=== PATIENT | male | born 1995 | race Caucasian/White ===

== ENCOUNTER → 2016-06-25 | Outpatient (CLI) | payer OTHER ==
[~2016-06-25] MED LIST: CETITAB27 PO; FLUT0.0529 NAE; KETO0.0216 OP; MONT1TAB3 PO; allergy shot SC
[2016-06-25 14:22] LABS: BASO % 0.4 %; BASO ABS # 0.02 K/uL (0-0.2); COMPLETE YES; EOS % 4.2 %; HEMATOCRIT 45.7 % (42-52); LYMPH % 35.4 %; LYMPH ABS # 1.95 K/uL (1.2-3.4); MEAN CELL VOLUME 82.2 fL (80-100); MEAN CORPUSCULAR HEMOGLOBIN 28.1 pg (25-34); MEAN CORPUSCULAR HGB CONC 34.1 g/dl (32-36); MEAN PLATELET VOLUME 11.2 fL (7.4-10.4); MONO % 7.6 %; NEUT % 52.4 %; PLATELET COUNT 233 K/uL (130-400); RED BLOOD COUNT 5.56 M/uL (4.7-6.1); WHITE BLOOD COUNT 5.51 K/uL (4.8-10.8)
[2016-06-25 14:35] LABS: CHOLESTEROL/HDL RATIO 3.6
== END | disposition home or self-care (01) ==
LOC: C.LABBC 10:49
PROVIDERS: ATTEND Family Medicine
DX: Z13.1 Encounter for screening for diabetes mellitus (principal); Z13.220 Encounter for screening for lipoid disorders; Z13.0 Encounter for screening for diseases of the blood and blood-forming organs and certain disorders involving the immune mechanism